=== PATIENT | male | born 1975 ===

== ENCOUNTER 2021-05-14 05:45 | Day surgery (SDC) | payer OTHER ==
[~2021-05-14 05:45] MED LIST: GLIPIZIDE XL5 MG PO; METFORMIN HCL500 M3 PO
== END 2021-05-14 14:55 | disposition home or self-care (01) ==
LOC: CIR.AMB 05:45
PROVIDERS: ATTEND Colon & Rectal Surgery
DX: D12.9 Benign neoplasm of anus and anal canal (principal); K60.1 Chronic anal fissure; K64.1 Second degree hemorrhoids